=== PATIENT | male | born 1985 | race Caucasian/White ===

== ENCOUNTER 2020-07-14 13:23 | Emergency (ER) | payer MEDICAID ==
[~2020-07-14] VITALS: Ht 177.8 cm; Wt 88.6 kg
[2020-07-14 13:32] VITALS: BP 123/76
[2020-07-14] MEDS ORDERED: SODIUM CHLORIDE 0.9% 1,000 ML IV ONE (14:30)
[2020-07-14] MEDS ORDERED: POTASSIUM CHL 10 MEQ/WATER 50 ML IV SCH (14:30)
[2020-07-14 14:52] LABS: BASOPHILS % (AUTO) 0.6 % (0.0-2.0); EOSINOPHILS % (AUTO) 1.6 % (1.0-6.0); HEMATOCRIT 49.6 % (41-53); HEMOGLOBIN 16.5 g/dL (13.5-17.5); LYMPHOCYTES # (AUTO) 2.2 K/uL (1.0-4.8); MEAN CORPUSCULAR HEMOGLOBIN 29.2 pg (26.0-34.0); MEAN CORPUSCULAR HGB CONC 33.2 G/dL (31.0-37.0); MEAN CORPUSCULAR VOLUME 88 fL (80-100); MONOCYTES # (AUTO) 0.6 K/uL (0.1-1.0); MONOCYTES % (AUTO) 7.1 % (2.0-9.0); NEUTROPHILS # (AUTO) 5.1 K/uL (1.8-7.7); NEUTROPHILS % (AUTO) 63.7 % (40.0-70.0); PLATELET COUNT (AUTO) 178 K/uL (150-450); RED BLOOD CELL COUNT(AUTO) 5.64 MIL/uL (4.50-5.90); RED CELL DISTRIBUTION WIDTH 12.7 % (11.5-14.5)
[2020-07-14 15:03] LABS: ANION GAP 10 mmol/L (8-16); CALCIUM, TOTAL 9.5 mg/dL (8.8-10.5); CARBON DIOXIDE 29 mmol/L (22-29); CHLORIDE 102 mmol/L (98-107); CREATININE 1.41 mg/dL (0.60-1.30); GLOMERULAR FILTR. RATE CALC 58 mL/min (>60); GLUCOSE,RANDOM 112 mg/dL (70-110); POTASSIUM 4.2 mmol/L (3.5-5.1); SODIUM SERUM 141 mmol/L (136-145); UREA NITROGEN, BLOOD 18 mg/dL (7-18)
[2020-07-14 15:09] LABS: ALANINE AMINOTRANSFERASE 30 U/L (12-78); ALKALINE PHOSPHATASE 81 U/L (46-116); ASPARTATE AMINOTRANSFERASE 19 U/L (15-37); BILIRUBIN,TOTAL 0.5 mg/dL (0.1-1.0); TOTAL PROTEIN, SERUM 8.4 g/dL (6.4-8.2)
[2020-07-14 15:11] LABS: COVID AG,FIA SOURCE NASOPHARYNGEAL
[2020-07-15] MEDS ORDERED: SERT-162 PO (14:18)
[2020-07-15] MEDS ORDERED: OLAN5TAB52 PO (14:18)
== END 2020-07-14 17:22 | disposition home or self-care (01) ==
LOC: EMS 13:26
DX: F32.9 Major depressive disorder, single episode, unspecified (principal); Z59.0 Homelessness; Z20.822 Contact with and (suspected) exposure to COVID-19
CPT/HCPCS: 36415; 80053; 85025; 87426; 99283; G0480

== ENCOUNTER 2020-07-15 11:31 | Inpatient (IN) | payer MEDICAID ==
[~2020-07-15] VITALS: Ht 180.3 cm; Wt 88.9 kg
[2020-07-15 14:09] VITALS: BP 139/72
[2020-07-15] MEDS ORDERED: SERT-162 PO (14:18)
[2020-07-15] MEDS ORDERED: OLAN5TAB52 PO (14:18)
[2020-07-15 16:15] VITALS: BP 106/60
[2020-07-16 00:16] VITALS: BP 109/68
[2020-07-16 07:17] LABS: EOSINOPHILS % (AUTO) 2.6 % (1.0-6.0); HEMATOCRIT 46.2 % (41-53); HEMOGLOBIN 15.6 g/dL (13.5-17.5); LYMPHOCYTES % (AUTO) 36.8 % (22.0-44.0); MEAN CORPUSCULAR HEMOGLOBIN 29.7 pg (26.0-34.0); MEAN CORPUSCULAR HGB CONC 33.7 G/dL (31.0-37.0); MEAN CORPUSCULAR VOLUME 88 fL (80-100); MONOCYTES # (AUTO) 0.5 K/uL (0.1-1.0); MONOCYTES % (AUTO) 8.8 % (2.0-9.0); NEUTROPHILS # (AUTO) 2.8 K/uL (1.8-7.7); NEUTROPHILS % (AUTO) 50.8 % (40.0-70.0); PLATELET COUNT (AUTO) 154 K/uL (150-450); RED BLOOD CELL COUNT(AUTO) 5.24 MIL/uL (4.50-5.90); RED CELL DISTRIBUTION WIDTH 12.7 % (11.5-14.5)
[2020-07-16 07:56] LABS: ALANINE AMINOTRANSFERASE 27 U/L (12-78); ALBUMIN 4.1 g/dL (3.4-5.0); ALKALINE PHOSPHATASE 74 U/L (46-116); ANION GAP 5 mmol/L (8-16); ASPARTATE AMINOTRANSFERASE 13 U/L (15-37); BILIRUBIN,TOTAL 0.4 mg/dL (0.1-1.0); CALCIUM, TOTAL 8.9 mg/dL (8.8-10.5); CARBON DIOXIDE 31 mmol/L (22-29); CHLORIDE 108 mmol/L (98-107); CHOL/HDL RATIO 5.6 (4.2-7.3); CHOLESTEROL 218 mg/dL (131-200); CREATININE 1.24 mg/dL (0.60-1.30); FREE T4 (FREE THYROXINE) 0.82 ng/dL (0.76-1.46); GLOMERULAR FILTR. RATE CALC > 60 mL/min (>60); GLUCOSE,RANDOM 88 mg/dL (70-110); HDL CHOLESTEROL 39 mg/dL (40-60); LDL CHOL (CALC.) 158 mg/dL (0-130); POTASSIUM 4.3 mmol/L (3.5-5.1); SODIUM SERUM 144 mmol/L (136-145); THYROID STIMULATING HORMONE 0.96 uIU/mL (0.36-3.74); TOTAL PROTEIN, SERUM 7.3 g/dL (6.4-8.2); TRIGLYCERIDES 107 mg/dL (15-150); UREA NITROGEN, BLOOD 17 mg/dL (7-18)
[2020-07-16 08:08] VITALS: BP 107/60
[2020-07-16] MEDS: CITALOPRAM HYDROBROMIDE 20 MG TABLET PO SCH (09:03)
[2020-07-16 16:18] VITALS: BP 124/65
[2020-07-16] MEDS: HALOPERIDOL 5 MG TABLET PO PRN (16:45)
[2020-07-16] MEDS: LORazepam 2 MG TABLET PO PRN (16:45)
[2020-07-16] MEDS: OLANZapine 5 MG TABLET PO SCH (21:30)
[2020-07-17 04:10] VITALS: BP 122/62
[2020-07-17 08:28] VITALS: BP 104/64
[2020-07-17] MEDS: CITALOPRAM HYDROBROMIDE 20 MG TABLET PO SCH (09:36)
[2020-07-17] MEDS: LORazepam 2 MG TABLET PO PRN (09:41)
[2020-07-17 16:22] VITALS: BP 112/64
[2020-07-17] MEDS: OLANZapine 5 MG TABLET PO SCH (20:38)
[2020-07-17] MEDS: ZOLPIDEM TARTRATE 10 MG TABLET PO PRN (20:46)
[2020-07-18 06:31] VITALS: BP 119/68
[2020-07-18 08:10] VITALS: BP 106/67
[2020-07-18] MEDS: HALOPERIDOL 5 MG TABLET PO PRN ×2 (09:07→17:04)
[2020-07-18] MEDS: CITALOPRAM HYDROBROMIDE 20 MG TABLET PO SCH (09:07)
[2020-07-18] MEDS: LORazepam 2 MG TABLET PO PRN ×2 (09:07→17:01)
[2020-07-18 16:35] VITALS: BP 106/80
[2020-07-18] MEDS: OLANZapine 5 MG TABLET PO SCH (20:55)
[2020-07-18] MEDS: ZOLPIDEM TARTRATE 10 MG TABLET PO PRN (20:58)
[2020-07-19 02:38] VITALS: BP 115/70
[2020-07-19 07:56] LABS: BILIRUBIN,URINE NEGATIVE (NEGATIVE); GLUCOSE, URINE (UA) NEGATIVE (NEGATIVE); KETONES,URINE NEGATIVE (NEGATIVE); LEUKOCYTE ESTERASE ,URINE NEGATIVE (NEGATIVE); NITRATE,URINE NEGATIVE (NEGATIVE); OCCULT BLOOD,URINE NEGATIVE (NEGATIVE); PH,URINE 7.5 (5.0-8.0); PROTEIN,URINE NEGATIVE (NEGATIVE); UROBILINOGEN,URINE 0.2 mg/dL (<=1.0)
[2020-07-19 08:03] LABS: AMPHET/METH SCREEN,URINE NEGATIVE (NEGATIVE); BARBITURATE SCREEN, URINE NEGATIVE (NEGATIVE); BENZODIAZEPINES SCREEN,URINE NEGATIVE (NEGATIVE); CANNABINOID SCREEN,URINE NEGATIVE (NEGATIVE); COCAINE SCREEN,URINE NEGATIVE (NEGATIVE); METHADONE SCREEN, URINE NEGATIVE (NEGATIVE); OPIATE SCREEN,URINE NEGATIVE (NEGATIVE); PHENCYCLIDINE SCREEN,URINE NEGATIVE (NEGATIVE)
[2020-07-19 08:29] LABS: APPEARANCE,URINE CLEAR (CLEAR)
[2020-07-19] MEDS: CITALOPRAM HYDROBROMIDE 20 MG TABLET PO SCH (08:56)
[2020-07-19] MEDS: HALOPERIDOL 5 MG TABLET PO PRN ×2 (09:17→15:11)
[2020-07-19] MEDS: LORazepam 2 MG TABLET PO PRN ×2 (09:17→15:11)
[2020-07-19 09:21] VITALS: BP 126/89
[2020-07-19 16:31] VITALS: BP 111/76
[2020-07-19] MEDS: OLANZapine 5 MG TABLET PO SCH (20:22)
[2020-07-19] MEDS: ZOLPIDEM TARTRATE 10 MG TABLET PO PRN (20:40)
[2020-07-20 00:40] VITALS: BP 105/70
[2020-07-20 07:13] LABS: COVID AG,FIA SOURCE NASOPHARYNGEAL
[2020-07-20 08:33] VITALS: BP 140/84
[2020-07-20] MEDS: LORazepam 2 MG TABLET PO PRN ×2 (08:44→15:53)
[2020-07-20] MEDS: CITALOPRAM HYDROBROMIDE 20 MG TABLET PO SCH (08:44)
[2020-07-20] MEDS: HALOPERIDOL 5 MG TABLET PO PRN ×2 (08:44→15:53)
[2020-07-20 16:45] VITALS: BP 127/82
[2020-07-20] MEDS: OLANZapine 10 MG TABLET PO SCH (20:34)
[2020-07-20] MEDS: ZOLPIDEM TARTRATE 10 MG TABLET PO PRN (20:34)
[2020-07-21] MEDS: LORazepam 2 MG TABLET PO PRN ×3 (05:41→18:01)
[2020-07-21 05:56] VITALS: BP 124/81
[2020-07-21 08:32] VITALS: BP 110/62
[2020-07-21] MEDS: CITALOPRAM HYDROBROMIDE 20 MG TABLET PO SCH (09:31)
[2020-07-21] MEDS: HALOPERIDOL 5 MG TABLET PO PRN ×2 (13:50→18:01)
[2020-07-21 16:23] VITALS: BP 122/65
[2020-07-21] MEDS: ZOLPIDEM TARTRATE 10 MG TABLET PO PRN (20:09)
[2020-07-21] MEDS: OLANZapine 10 MG TABLET PO SCH (20:09)
[2020-07-22] MEDS: HALOPERIDOL 5 MG TABLET PO PRN ×3 (05:35→17:13)
[2020-07-22] MEDS: LORazepam 2 MG TABLET PO PRN ×3 (05:35→17:13)
[2020-07-22 05:48] VITALS: BP 117/74
[2020-07-22 08:47] VITALS: BP 106/64
[2020-07-22] MEDS: CITALOPRAM HYDROBROMIDE 20 MG TABLET PO SCH (09:00)
[2020-07-22 16:38] VITALS: BP 110/69
[2020-07-22] MEDS: OLANZapine 7.5 MG TABLET PO SCH (20:13)
[2020-07-22] MEDS: ZOLPIDEM TARTRATE 10 MG TABLET PO PRN (20:23)
[2020-07-23 05:25] VITALS: BP 113/70
[2020-07-23] MEDS: HALOPERIDOL 5 MG TABLET PO PRN ×4 (07:04→21:05)
[2020-07-23] MEDS: LORazepam 2 MG TABLET PO PRN ×4 (07:04→21:05)
[2020-07-23] MEDS: CITALOPRAM HYDROBROMIDE 20 MG TABLET PO SCH (08:27)
[2020-07-23 08:28] VITALS: BP 123/78
[2020-07-23 16:00] VITALS: BP 124/88
[2020-07-23] MEDS: OLANZapine 7.5 MG TABLET PO SCH (20:07)
[2020-07-23] MEDS: ZOLPIDEM TARTRATE 10 MG TABLET PO PRN (21:35)
[2020-07-24 02:09] VITALS: BP 135/76
[2020-07-24] MEDS: LORazepam 2 MG TABLET PO PRN (07:07)
[2020-07-24] MEDS: HALOPERIDOL 5 MG TABLET PO PRN (07:07)
[2020-07-24] MEDS ORDERED: CITA-144 PO (07:49)
[2020-07-24] MEDS ORDERED: OLAN7.5T22 PO (07:50)
[2020-07-24 08:33] VITALS: BP 127/76
[2020-07-24] MEDS: CITALOPRAM HYDROBROMIDE 20 MG TABLET PO SCH (09:21)
== END 2020-07-24 10:01 | disposition home or self-care (01) | DRG 754 ==
LOC: B2S 13:17
PROVIDERS: ADMIT Psychiatry & Neurology Psychiatry; ATTEND Psychiatry & Neurology Psychiatry
DX: F32.9 Major depressive disorder, single episode, unspecified (principal); F41.9 Anxiety disorder, unspecified; G47.00 Insomnia, unspecified; Z20.822 Contact with and (suspected) exposure to COVID-19; K59.00 Constipation, unspecified
CPT/HCPCS: 80053; 80061; 80307; 81003; 84439; 84443; 85025